=== PATIENT | male | born 1985 | race Caucasian/White ===

== ENCOUNTER 2022-12-28 10:04 | Emergency (ER) | payer OTHER ==
[2022-12-28 10:13] VITALS: BP 134/85; PULSE 91; RESP 20; TEMP 98.2; BMI 30.4
[2022-12-28] MEDS ORDERED: TETRACAINE 0.5% HCL 0.6ML DROPPER.BOTTLE OU ONE (10:42)
[2022-12-28] MEDS ORDERED: ACETAMINOPHEN 500 MG TABLET (FP) PO ONE (10:42)
[2022-12-28] MEDS ORDERED: FLUORESCEIN NA 1 EA STRIP OU ONE (10:42)
[2022-12-28] MEDS ORDERED: FLUORESCEIN NA 1 EA STRIP ONE (10:46)
[2022-12-28] MEDS ORDERED: ACETAMINOPHEN 500 MG TABLET (FP) ONE (10:46)
[2022-12-28] MEDS ORDERED: TETRACAINE 0.5% OPHTH SOLN 2 ML BOTTLE ONE (10:46)
[2022-12-28] MEDS ORDERED: ERYTHROMYCIN 0.5% OPHTHALMIC OINTMENT 3.5 GM TUBE OD ONE (11:26)
[2022-12-28] MEDS ORDERED: ERYTHROMYCIN 0.5% OPHTHALMIC OINTMENT 3.5 GM TUBE ONE (11:34)
== END 2022-12-28 11:38 | disposition home or self-care (01) ==
LOC: JERFT 10:04
DX: H57.89 Other specified disorders of eye and adnexa (principal); H10.32 Unspecified acute conjunctivitis, left eye; H57.12 Ocular pain, left eye; H53.71 Glare sensitivity; R51.9 Headache, unspecified
CPT/HCPCS: 99283-25